=== PATIENT | female | born 1930 | race Caucasian/White ===

== ENCOUNTER → 2017-06-04 | Outpatient (CLI) | payer MEDICARE, OTHER ==
[~2017-06-04] MED LIST: ALE70 PO; ASP325 PO; ATR10 PO; CALC-1 PO; CALC-547 PO; CALC600T63 PO; CELE-1 PO; CHOL100059 PO; CHOL4PAC15 PO; CIPR-326 PO; DEN60I SUBQ; DIAZ2TAB72 PO; DILT-145 PO; DILT120T13 PO; DIPH-1 PO; ENA25 PO; ENOX80DI8 SQ; FENT-88 TD; GAB100 PO; GLUC-198 PO; GLUC-255 PO; Instaflex PO; LEV75 PO; LEVO75TA68 PO; LEVO88TA45 PO; LOR5/325 PO; LORA-1254 PO; LOSA50TA72 PO; MAGN200T6 PO; MESA1.2T2 PO; METO25TA93 PO; MORP-1 PO; MULT-1 PO; MULT1TAB64 PO; OMEP-125 PO; OMEP-137 PO; OND4 PO; OXY5 PO; OXYGENHOME INH; PNEU0.5D3 IM; PRE5 PO; PRED20TA6 PO; RANI-366 PO; TRAM-420 PO; WARF-12 PO; WARF5TAB23 PO; [UNRECOGNIZED DRUG - OTHER] PO
== END ==
LOC: LAB 15:13
PROVIDERS: ATTEND Emergency Medicine
DX: N18.3 Chronic kidney disease, stage 3 (moderate) (principal); E03.9 Hypothyroidism, unspecified; E83.52 Hypercalcemia
CPT/HCPCS: 36415; 82040; 82247; 82306; 82310; 82374; 82435; 82565; 82947; 83970; 84075; 84132; 84155; 84295; 84443; 84450; 84460; 84520

== ENCOUNTER → 2017-06-08 | Outpatient (CLI) | payer MEDICARE, OTHER ==
[~2017-06-08] MED LIST changes: +LEVO75TA73 PO; +MAGN100T2 PO
[2017-06-08 14:58] LABS: PLATELET COUNT, AUTOMATED 261 K/uL (150-450)
== END ==
LOC: LAB 14:16
PROVIDERS: ATTEND Emergency Medicine
DX: N18.3 Chronic kidney disease, stage 3 (moderate) (principal)
CPT/HCPCS: 36415; 82310; 82374; 82435; 82565; 82947; 84132; 84295; 84520; 85025

== ENCOUNTER → 2017-07-16 | Outpatient (CLI) | payer MEDICARE, OTHER | LOC: LAB 14:21 | PROVIDERS: ATTEND Emergency Medicine | DX: E03.9 Hypothyroidism, unspecified (principal); E83.52 Hypercalcemia | CPT/HCPCS: 36415; 82310; 84443 ==

== ENCOUNTER → 2017-08-26 | Outpatient (CLI) | payer MEDICARE, OTHER ==
[~2017-08-26] MED LIST changes: +LEVO25TA61 PO; +LEVO50TA86 PO
== END ==
LOC: LAB 10:19
PROVIDERS: ATTEND Emergency Medicine
DX: E03.9 Hypothyroidism, unspecified (principal)
CPT/HCPCS: 36415; 84443

== ENCOUNTER → 2017-09-30 | Outpatient (CLI) | payer MEDICARE, OTHER | LOC: LAB 11:30 | PROVIDERS: ATTEND Emergency Medicine | DX: E03.9 Hypothyroidism, unspecified (principal) | CPT/HCPCS: 36415; 84443 ==

== ENCOUNTER → 2017-11-08 | Outpatient (CLI) | payer MEDICARE, OTHER ==
[~2017-11-08] MED LIST changes: -LOSA50TA72 PO; +LOSA50TA74 PO
--- NOTE | 2017-11-10 16:05 | RADIOLOGY IMAGING REPORT ---
FACILITY: [facility] PATIENT NAME: NINA VILLALTA : [id number] MR: [id number] V: [id number] EXAM DATE: [id number] ORDERING PHYSICIAN: NIRAV ADAM TECHNOLOGIST: Bindu Nava PROCEDURE:BILATERAL DIGITAL SCREENING MAMMOGRAM WITH CAD ASSISTED INTERPRETATION & 3D TOMOSYNTHESIS COMPARISON:Prior mammograms 11/04/2016, 10/24/2015. INDICATIONS:SCREENING FINDINGS: There is scattered fibroglandular tissue. Unchanged vascular calcifications. Unchanged benign clustered microcalcifications in the upper posterior Left breast. No suspicious mass, microcalcification or architectural distortion. No change compared to priors. IMPRESSION: BIRADS 1: Negative. Normal exam. Annual mammographic screening recommended. Dictated by: Gilmer Villaseñor on 11/08/2017 at 15:47 Transcribed by: NOHEMI on 11/08/2017 at 16:08 Approved by: Alec Presley M.D. on 11/10/2017 at 16:05 [facility]
== END ==
LOC: MAMO 00:46
PROVIDERS: ATTEND Emergency Medicine
DX: Z12.31 Encounter for screening mammogram for malignant neoplasm of breast (principal)
CPT/HCPCS: 77063; 77067

== ENCOUNTER → 2017-11-23 | Outpatient (CLI) | payer MEDICARE, OTHER ==
[2017-11-23 10:53] LABS: PLATELET COUNT, AUTOMATED 241 K/uL (150-450)
== END ==
LOC: LAB 10:30
PROVIDERS: ATTEND Emergency Medicine
DX: E03.9 Hypothyroidism, unspecified (principal); M81.0 Age-related osteoporosis without current pathological fracture; N18.3 Chronic kidney disease, stage 3 (moderate); I12.9 Hypertensive chronic kidney disease with stage 1 through stage 4 chronic kidney disease, or unspecified chronic kidney disease
CPT/HCPCS: 36415; 82040; 82247; 82306; 82310; 82374; 82435; 82465; 82565; 82947; 83718; 84075; 84132; 84155; 84295; 84443; 84450; 84460; 84478; 84520; 85025

== ENCOUNTER → 2017-11-29 | Outpatient (CLI) | payer MEDICARE, OTHER | LOC: LAB 16:23 | PROVIDERS: ATTEND Emergency Medicine | DX: H20.9 Unspecified iridocyclitis (principal) | CPT/HCPCS: 36415; 86140 ==

== ENCOUNTER → 2018-06-06 | Outpatient (CLI) | payer MEDICARE, OTHER ==
[~2018-06-06] MED LIST changes: +DICL100G39 TOP; -LOSA50TA74 PO; +LOSA50TA80 PO; +LUTE20CA11 PO
== END ==
LOC: LAB 16:11
PROVIDERS: ATTEND Emergency Medicine
DX: I12.9 Hypertensive chronic kidney disease with stage 1 through stage 4 chronic kidney disease, or unspecified chronic kidney disease (principal); N18.3 Chronic kidney disease, stage 3 (moderate)
CPT/HCPCS: 36415; 82310; 82374; 82435; 82565; 82947; 83970; 84100; 84132; 84295; 84520

== ENCOUNTER → 2018-08-04 | Outpatient (CLI) | payer MEDICARE, OTHER ==
[~2018-08-04] MED LIST changes: +HYDR-385 PO; -OMEP-125 PO; +OMEP-126 PO; -RANI-366 PO; +RANI-54 PO; +SULF-198 PO
[2018-08-04 10:55] LABS: PLATELET COUNT, AUTOMATED 245 K/uL (150-450)
== END ==
LOC: LAB 10:27
PROVIDERS: ATTEND Emergency Medicine
DX: M79.675 Pain in left toe(s) (principal)
CPT/HCPCS: 36415; 84550; 85025; 86140

== ENCOUNTER → 2018-08-18 | Outpatient (CLI) | payer MEDICARE, OTHER ==
[2018-08-18 10:24] LABS: PLATELET COUNT, AUTOMATED 262 K/uL (150-450)
== END ==
LOC: LAB 10:07
PROVIDERS: ATTEND Emergency Medicine
DX: L03.90 Cellulitis, unspecified (principal)
CPT/HCPCS: 36415; 85025; 86140